=== PATIENT | female | born 1970 | race Caucasian/White ===

== ENCOUNTER → 2016-06-26 | Outpatient (CLI) | payer OTHER ==
[~2016-06-26] MED LIST: AMOXICILLIN500 MG PO; AMOXIL500 MG PO; ANAPROX DS550 MG PO; CELEBREX200 MG PO; CIPROFLOXACIN500 MG PO; FLEXERIL10 MG PO; HYDROCODONE BIT1 T11 PO; IBUPROFEN800 MG; KEFLEX500 MG PO; MACROBID100 M1 PO; MOTRIN800 MG PO; PEN-V500 MG PO; RANITIDINE; ROBITUSSIN DAC PO; SEPTRA DS 800 M1 TAB PO; SUBOXONE 8 MG-21 TA1 SL; TESSALON PERLE200 MG PO; TRAMADOL HCL50 MG PO; ZANTAC150 MG PO; ZITHROMAX Z PA250 MG PO; ZYRTEC10 M1 PO
== END | disposition home or self-care (01) ==
LOC: LAB 12:42
DX: F11.20 Opioid dependence, uncomplicated (principal)

== ENCOUNTER → 2018-11-11 | Outpatient (CLI) | payer OTHER ==
[2018-11-11 12:27] LABS: BASO # 0.1 10*3/uL (0.0-0.1); BASO % 0.7 % (0.0-1.0); EOS # 0.3 10*3/uL (0.0-0.4); EOS % 2.9 % (1.0-4.0); HEMATOCRIT 39.4 % (37.0-47.0); HEMOGLOBIN 12.1 g/dl (12.0-16.0); LYMPH # 2.1 10*3/uL (1.3-4.4); MEAN CELL VOLUME 88.3 fl (81.0-99.0); MEAN CORPUSCULAR HGB 27.1 pg (27.0-31.0); MEAN CORPUSCULAR HGB CONC 30.7 g/dl (33.0-37.0); MEAN PLATELET VOLUME 11.7 fl (9.6-12.3); MONO # 0.6 10*3/uL (0.1-1.0); MONO % 6.6 % (3.0-9.0); NEUT # 6.5 10*3/uL (2.3-7.9); NEUT % 67.4 % (47.0-73.0); PLATELET COUNT AUTOMATED 264 10*3/uL (130-400); RED BLOOD COUNT 4.46 10*6/uL (4.10-5.10); RED CELL DISTRI WIDTH 15.7 % (0-14.5); WHITE BLOOD COUNT 9.6 10*3/uL (4.8-10.8)
[2018-11-11 12:58] LABS: ALBUMIN 3.7 gm/dl (3.1-4.5); BUN 7 mg/dl (7-24); CHLORIDE 105 mmol/L (98-107); CHOLESTEROL 122 mg/dL (<200); CREATININE 0.72 mg/dL (0.55-1.02); FREE T4 1.04 ng/dl (0.76-1.46); HDL CHOLESTEROL 40 mg/dl (40-60); LDL CHOLESTEROL 62 mg/dL (9-159); POTASSIUM 3.6 mmol/L (3.5-5.1); SGOT/AST 17 IU/L (3-35); SGPT/ALT 17 U/L (12-78); SODIUM 136 mmol/L (136-145); TRIGLYCERIDES 102 mg/dl (<150); VLDL CHOLESTEROL 20 mg/dL (6-40)
[2018-11-11 13:04] LABS: ALKALINE PHOSPHATASE 114 U/L (45-117)
[2018-11-11 13:33] LABS: VITAMIN D, 25-HYDROXY 23.6 ng/mL (30-100)
[2018-11-12 07:05] LABS: PROGESTERONE 004317 6.2 ng/mL (.)
== END | disposition home or self-care (01) ==
LOC: LAB 11:25
DX: M32.10 Systemic lupus erythematosus, organ or system involvement unspecified (principal); N93.9 Abnormal uterine and vaginal bleeding, unspecified; E03.9 Hypothyroidism, unspecified; E78.49 Other hyperlipidemia

== ENCOUNTER → 2021-01-12 | Outpatient (CLI) | payer OTHER ==
[2021-01-12 13:37] LABS: BASO # 0.1 10*3/uL (0.0-0.1); BASO % 0.9 % (0.0-1.0); EOS # 0.3 10*3/uL (0.0-0.4); EOS % 3.6 % (1.0-4.0); HEMATOCRIT 43.6 % (37.0-47.0); LYMPH # 1.8 10*3/uL (1.3-4.4); LYMPH % 24.5 % (27.0-41.0); MEAN CELL VOLUME 96.9 fl (81.0-99.0); MEAN CORPUSCULAR HGB 31.3 pg (27.0-31.0); MEAN CORPUSCULAR HGB CONC 32.3 g/dl (33.0-37.0); MEAN PLATELET VOLUME 10.4 fl (9.6-12.3); MONO # 0.4 10*3/uL (0.1-1.0); MONO % 5.8 % (3.0-9.0); NEUT # 4.8 10*3/uL (2.3-7.9); NEUT % 64.8 % (47.0-73.0); PLATELET COUNT AUTOMATED 239 10*3/uL (130-400); RED CELL DISTRI WIDTH 12.7 % (0-14.5); WHITE BLOOD COUNT 7.5 10*3/uL (4.8-10.8)
[2021-01-12 13:56] LABS: ALBUMIN 3.5 gm/dl (3.1-4.5); ALKALINE PHOSPHATASE 91 U/L (45-117); BUN 10 mg/dl (7-24); CHLORIDE 108 mmol/L (98-107); CREATININE 0.77 mg/dL (0.55-1.02); SGOT/AST 34 IU/L (3-35); SGPT/ALT 33 U/L (12-78); SODIUM 138 mmol/L (136-145); TOTAL PROTEIN 7.6 gm/dL (6.4-8.2)
[2021-01-12 15:13] LABS: VITAMIN D, 25-HYDROXY 30.3 ng/mL (30-100)
== END | disposition home or self-care (01) ==
LOC: LAB 13:23
PROVIDERS: ATTEND Physician Assistant
DX: Z51.81 Encounter for therapeutic drug level monitoring (principal); E55.9 Vitamin D deficiency, unspecified; Z79.899 Other long term (current) drug therapy

== ENCOUNTER 2023-01-11 07:27 | Emergency (ER) | payer OTHER ==
[~2023-01-11] VITALS: Ht 165.1 cm; Wt 65.8 kg
[2023-01-11 08:25] LABS: BASO # 0.1 10*3/uL (0.0-0.1); BASO % 0.3 % (0.0-1.0); EOS # 0.2 10*3/uL (0.0-0.4); HEMATOCRIT 42.2 % (37.0-47.0); LYMPH % 5.8 % (27.0-41.0); MEAN CELL VOLUME 95.3 fl (81.0-99.0); MEAN CORPUSCULAR HGB 31.6 pg (27.0-31.0); MEAN CORPUSCULAR HGB CONC 33.2 g/dl (33.0-37.0); MEAN PLATELET VOLUME 10.6 fl (9.6-12.3); MONO # 0.8 10*3/uL (0.1-1.0); MONO % 4.9 % (3.0-9.0); NEUT # 14.5 10*3/uL (2.3-7.9); NEUT % 87.7 % (47.0-73.0); PLATELET COUNT AUTOMATED 226 10*3/uL (130-400); RED BLOOD COUNT 4.43 10*6/uL (4.10-5.10); RED CELL DISTRI WIDTH 13.1 % (0-14.5); WHITE BLOOD COUNT 16.5 10*3/uL (4.8-10.8)
[2023-01-11 08:48] LABS: ALKALINE PHOSPHATASE 123 U/L (46-116); BUN 8 mg/dl (9-23); CHLORIDE 107 mmol/L (98-107); POTASSIUM 4.1 mmol/L (3.4-5.1); SGPT/ALT 25 U/L (5-49)
[2023-01-11] MEDS ORDERED: AMOX-CLAV 875-1 EACH PO (09:18)
[2023-01-11] MEDS ORDERED: IBU800 M1 PO (09:18)
[2023-01-11] MEDS ORDERED: REGLAN10 M1 PO (09:18)
== END 2023-01-11 09:52 | disposition home or self-care (01) ==
LOC: ED 07:27
PROVIDERS: Emergency Medicine
DX: R51.9 Headache, unspecified (principal); Z20.822 Contact with and (suspected) exposure to COVID-19; H66.91 Otitis media, unspecified, right ear; R05.9 Cough, unspecified; J02.9 Acute pharyngitis, unspecified; F32.A Depression, unspecified; F41.9 Anxiety disorder, unspecified; Z79.899 Other long term (current) drug therapy; Z98.890 Other specified postprocedural states